=== PATIENT | female | born 1945 | race Caucasian/White ===

== ENCOUNTER 2017-09-07 22:26 | Emergency (ER) | payer MEDICARE ==
[~2017-09-07] VITALS: Ht 160 cm; Wt 71.0 kg
--- NOTE | 2017-09-07 22:32 | PD ---
HPI Chief Complaint: Abdominal pain Time Seen by Provider: 22:32 Travel History International Travel<30 days: No Contact w/Intl Traveler<30days: No Traveled to known affect area: No History of Present Illness HPI 71-year-old female came to the emergency room with history of trip and fall just prior to coming to the emergency room. Patient tried to break her fall on outstretched hands but ended up smashing her nose on the ground. There was significant amount of epistaxis after the injury. Currently patient is here because her nose is really hurting. She has an ice pack over her nose. Patient thinks her last tetanus shot was more than 5 years ago. Vital signs are stable. Patient denies losing consciousness. She is not on any blood thinners. [facility] Past Medical History Narrative Medical List of her past medical, surgical, social and family history is reviewed from the nursing note. Social History Tobacco Use: No Allergies-Medications (Allergen,Severity, Reaction): Coded Allergies: codeine (Verified Allergy, Severe, 09/07/17) No Known Allergies (Verified Allergy, Unknown, 09/07/17) Comments List of her allergies reviewed from the nursing note Reported Meds & Prescriptions Reported Meds & Active Scripts Active Hydrocodone-Acetaminophen 5-325 mg Tab 1 Tab PO Q6H PRN Bacitracin Topical 500 Unit/Gm Oint 1 Applic TOPICAL BID Reported Omeprazole 20 Mg Cap PO DAILY Lisinopril 20 Mg Tab 20 Mg PO DAILY Narrative Medication List of her home medications reviewed from the nursing Review of Systems Except as stated in HPI: all other systems reviewed are Neg Musculoskeletal: Positive: Pain Physical Exam Narrative GENERAL: Awake, alert, anxious, significant SKIN: Focused skin assessment warm/dry. Abrasion on the bridge of her nose with no active bleeding HEAD: Atraumatic. Normocephalic. EYES: Pupils equal and round. No scleral icterus. No injection or drainage. No posterior pharyngeal bleeding ENT: No nasal bleeding or discharge. Mucous membranes pink and moist. Nose is swollen and tender to touch. Left nostril has blood clot but not active bleed NECK: Trachea midline. No JVD. CARDIOVASCULAR: Regular rate and rhythm. No murmur appreciated. RESPIRATORY: No accessory muscle use. Clear to auscultation. Breath sounds equal bilaterally. GASTROINTESTINAL: Abdomen soft, non-tender, nondistended. Hepatic and splenic margins not palpable. MUSCULOSKELETAL: No obvious deformities. No clubbing. No cyanosis. No edema. NEUROLOGICAL: Awake and alert. No obvious cranial nerve deficits. Motor grossly within normal limits. Normal speech. PSYCHIATRIC: Appropriate mood and affect; insight and judgment normal. Data Data Last Documented VS Vital Signs Date Time Temp Pulse Resp B/P (MAP) Pulse Ox O2 Delivery O2 Flow Rate FiO2 09/07/17 22:34 97.8 108 18 195/114 (141) 95 Orders Orders Acetamin-Hydrocod 325-5 Mg ([place] 5-325 (09/07/17 22:45) Ct Brain W/O Iv Contrast(Rout) (09/07/17 ) Ct Facial Bones W/O Iv Cont (09/07/17 ) Tetanus/Diphtheria Tox Adult (Tetanus/Di (09/07/17 22:45) Ed Discharge Order (09/07/17 23:29) [facility] Medical Decision Making Medical Screen Exam Complete: Yes Emergency Medical Condition: Yes Medical Record Reviewed: Yes Differential Diagnosis Nasal fracture, facial fracture Narrative Course 11:35 PM CAT scan reports are back and no intracranial bleed. Patient does have pressure of the nasal bone. Patient was medicated for pain. She was given tetanus shot. I am comfortable discharging her home. I have discussed the CAT scan report with her. Procedures EKG Prior to Arrival: No Diagnosis Primary Impression: Fall Qualified Codes: W19.XXXA - Unspecified fall, initial encounter Additional Impressions: Facial injury Qualified Codes: S09.93XA - Unspecified injury of face, initial encounter Nasal fracture Qualified Codes: S02.2XXA - Fracture of nasal bones, initial encounter for closed fracture Nasal abrasion Qualified Codes: S00.31XA - Abrasion of nose, initial encounter Referrals: Steven Lees MD 3 days Additional Instructions: Follow-up with the ENT surgeon whose name and number been provided to you. Take the pain medication as per the prescription direction. The pain medicine will make a little groggy. You should not be driving while on it. Apply ice pack on the nose to keep the swelling down. Apply the antibiotic ointment twice a day on the abrasion until it heals. Med/Other Pt SpecificInfo: Prescription(s) given Scripts Hydrocodone-Acetaminophen (Hydrocodone-Acetaminophen) 5-325 mg Tab 1 TAB PO Q6H Y for PAIN, #15 TAB 0 Refills Prov: Dory Rivera MD 09/07/17 Bacitracin Topical (Bacitracin Topical) 500 Unit/Gm Oint 1 APPLIC TOPICAL BID for Infection, #30 GM 0 Refills Prov: Dory Rivera MD 09/07/17 Disposition: 01 DISCHARGE HOME Condition: Stable Dory Rivera MD Sep 07, 2017 22:32
[2017-09-07 22:34] VITALS: BP 195/114; PULSE 108; RESP 18; TEMP 97.8; O2SAT 95
[2017-09-07] MEDS ORDERED: LISI-515 PO (22:43)
[2017-09-07] MEDS ORDERED: OMEP20CA2 PO (22:43)
[2017-09-07] MEDS ORDERED: ACETAMINOPHEN/HYDROcodone 325 MG/5 MG TAB PO ONE (22:45)
[2017-09-07] MEDS ORDERED: TETANUS/DIPHTHERIA TOXOID ADULT 0.5 ML VIAL IM ONE (22:45)
--- NOTE | 2017-09-07 23:01 | RADRPT ---
EXAM DATE/TIME: 09/07/2017 22:54 [facility] COMPARISON: No previous studies available for comparison. INDICATIONS : Trauma, fall. RADIATION DOSE: 31.65 CTDIvol (mGy) ; Patient motion MEDICAL HISTORY : None SURGICAL HISTORY : None. ENCOUNTER: Initial ACUITY: 1 day PAIN SCALE: 0/10 LOCATION: cranial TECHNIQUE: Multiple contiguous axial images were obtained of the head. Using automated exposure control and adj ustment of the mA and/or kV according to patient size, radiation dose was kept as low as reasonably a chievable to obtain optimal diagnostic quality images. DICOM format image data is available electro nically for review and comparison. FINDINGS: CEREBRUM: The ventricles are normal for age. No evidence of midline shift, mass lesion, hemorrhage or acute in farction. No extra-axial fluid collections are seen. POSTERIOR FOSSA: The cerebellum and brainstem are intact. The 4th ventricle is midline. The cerebellopontine angle i s unremarkable. EXTRACRANIAL: The visualized portion of the orbits is intact. SKULL: The calvaria is intact. No evidence of skull fracture. CONCLUSION: No bleed or other acute intracranial abnormality. Dano Gillespie MD on September 07, 2017 at 22:59 Board Certified Radiologist. This report was verified electronically.
--- NOTE | 2017-09-07 23:12 | RADRPT ---
EXAM DATE/TIME: 09/07/2017 22:54 [facility] COMPARISON: No previous studies available for comparison. INDICATIONS : Trauma, fall. Bump on nose. RADIATION DOSE: 52.29 CTDIvol (mGy) MEDICAL HISTORY : None SURGICAL HISTORY : None. ENCOUNTER: Initial ACUITY: 1 day PAIN SCORE: 6/10 LOCATION: facial TECHNIQUE: Volumetric scanning of the facial bones was performed. Using automated exposure control and adjustme nt of the mA and/or kV according to patient size, radiation dose was kept as low as reasonably achiev able to obtain optimal diagnostic quality images. DICOM format image data is available electronicall y for review and comparison. FINDINGS: ORBITS: The orbital and infraorbital osseous structures are intact. The retroconal structures have a normal configuration. No radiopaque foreign bodies are seen. NASAL BONE: Mildly comminuted, nondisplaced fracturing of the tip at the nasion. ZYGOMATIC ARCHES: Symmetric without evidence of fracture. SINUSES: Mucoperiosteal thickening of the ethmoid and maxillary air cells. There is low attenuation fluid in t he left maxillary air cell NASAL CAVITY: Mucoperiosteal thickening seen throughout. Intact septum. SOFT TISSUES: No radiopaque foreign bodies seen. No soft-tissue swelling is seen. INTRACRANIAL: No intracranial air seen. CRIBIFORM PLATE: Grossly intact. CONCLUSION: Nondisplaced fracture of the tip of the nasion. Other facial bones are intact. Acute on chronic appea ring sinusitis. Dano Gillespie MD on September 07, 2017 at 23:08 Board Certified Radiologist. This report was verified electronically.
[2017-09-07] MEDS ORDERED: HYDR-3516 PO (23:32)
[2017-09-07] MEDS ORDERED: BACI500O9 TOPICAL (23:32)
== END 2017-09-08 00:15 | disposition home or self-care (01) ==
LOC: NEPD 22:26
DX: S02.2XXA Fracture of nasal bones, initial encounter for closed fracture (principal); W01.0XXA Fall on same level from slipping, tripping and stumbling without subsequent striking against object, initial encounter; Z23 Encounter for immunization
CPT/HCPCS: 70450; 70486; 90471; 90714